=== PATIENT | male | born 1995 | race Hispanic/Latino ===

== ENCOUNTER 2016-10-23 10:26 | Emergency (ER) | payer MEDICAID ==
[2016-10-23 11:21] VITALS: BP 136/83; PULSE 96; RESP 16; TEMP 97.4; O2SAT 98
[2016-10-23] MEDS ORDERED: Naproxen 500 MG TAB PO STA (11:21)
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
--- NOTE | 2016-10-23 12:55 | RAD ---
PROCEDURE: Right Ankle Radiographs. HISTORY: r/o fx COMPARISON: None FINDINGS: BONES: There is an acute nondisplaced fracture in the distal fibula. JOINTS: Normal. No osteoarthritis. Ankle mortise maintained. Talar dome intact SOFT TISSUES: There is moderate lateral soft tissue swelling. OTHER FINDINGS: None. IMPRESSION: Acute nondisplaced fracture in the distal fibula and moderate lateral soft tissue swelling.
--- NOTE | 2016-10-23 12:55 | RAD ---
PROCEDURE: Radiographs of the right tibia and fibula. HISTORY: r/o fx COMPARISON: None available. TECHNIQUE: Frontal and lateral views obtained. FINDINGS: BONES: There is an acute nondisplaced fracture in the distal fibula. Bone alignment and mineralization are normal. JOINT SPACES: Unremarkable. OTHER FINDINGS: There is mild lateral soft tissue swelling. IMPRESSION: Acute nondisplaced fracture in the distal fibula and mild lateral soft tissue swelling.
--- NOTE | 2016-10-23 12:56 | RAD ---
PROCEDURE: Right Foot Radiographs. HISTORY: Ankle pain COMPARISON: None. FINDINGS: BONES: Treatment mineralization are normal. There is no acute displaced fracture or bone destruction. JOINTS: Normal. SOFT TISSUES: Normal. OTHER FINDINGS: None. IMPRESSION: No acute fracture or dislocation.
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
== END 2016-10-23 14:45 | disposition home or self-care (01) ==
LOC: H.ER 10:26
DX: S82.891A Other fracture of right lower leg, initial encounter for closed fracture (principal); X50.1XXA Overexertion from prolonged static or awkward postures, initial encounter; Y93.02 Activity, running; Y92.9 Unspecified place or not applicable

== ENCOUNTER 2016-11-13 18:08 | Emergency (ER) | payer MEDICAID ==
[2016-11-13 18:25] VITALS: BP 133/88; PULSE 81; RESP 18; TEMP 99; O2SAT 99
--- NOTE | 2016-11-13 20:11 | ED PDOC ---
Lower Extremity Pain/Injury Time Seen by Provider: 11/13/16 18:25 Chief Complaint (Nursing): Lower Extremity Problem/Injury Chief Complaint (Provider): Right ankle injury History Per: Patient History/Exam Limitations: no limitations Onset/Duration Of Symptoms: Days (x 2) Current Symptoms Are (Timing): Still Present Additional Complaint(s): Adonis is a 20 y/o male who presents to the ED complaining of right foot pain. Was seen here on 10/23/16, and diagnosed with fracture of right ankle. Patient evaluated by Podiatry, and was to follow up the next day for surgery consideration, but states he had insurance issues and did not. Also, he was scared about the thought of surgery. Patient ended up removing splint and has been walking around. States he has not attempted to look for a new Orthopedist or Automatic Oven Operator to heal the fracture. Also reports 2 days ago he fell down and re- injured the right leg, having increased pain ever since. PMD: Non H Provider Past Medical History Reviewed: Historical Data, Nursing Documentation, Vital Signs Vital Signs: Last Vital Signs Temp 99 F 11/13/16 18:19 Pulse 81 11/13/16 18:19 Resp 18 11/13/16 18:19 BP 133/88 11/13/16 18:19 Pulse Ox 99 11/13/16 18:19 - Family History Family History: States: Unknown Family Hx - Home Medications Home Medications: Ambulatory Orders Medication Instructions Recorded oxyCODONE/Acetaminophen [Percocet 1 ea PO Q6 PRN #20 tab 10/23/16 5/325 mg Tab] - Allergies Allergies/Adverse Reactions: Allergies Allergy/AdvReac Type Severity Reaction Status Date / Time No Known Allergies Allergy Verified 10/23/16 11:21 Review of Systems ROS Statement: Except As Marked, All Systems Reviewed And Found Negative Musculoskeletal: Positive for: Foot Pain (right ankle) Neurological: Negative for: Weakness, Numbness Physical Exam - Reviewed Nursing Documentation Reviewed: Yes Vital Signs Reviewed: Yes - Physical Exam Appears: Positive for: Well, Non-toxic, No Acute Distress Head Exam: Positive for: ATRAUMATIC, NORMAL INSPECTION, NORMOCEPHALIC Skin: Positive for: Normal Color, Warm, Dry Eye Exam: Positive for: EOMI, Normal appearance, PERRL Neck: Positive for: Normal, Painless ROM Respiratory: Negative for: Respiratory Distress Pulses-Dorsalis Pedis (L): 2+ Pulses-Dorsalis Pedis (R): 2+ Extremity: Positive for: Tenderness (Moderate tenderness to the lateral malleolus), Capillary Refill (< 2 sec). Negative for: Deformity, Swelling Neurologic/Psych: Positive for: Alert, Oriented - ECG O2 Sat by Pulse Oximetry: 99 (RA) Pulse Ox Interpretation: Normal - Radiology X-Ray: Interpreted by Me, Viewed By Me X-Ray Interpretation: Fracture (nondisplaced oblique fracture of the distal fibula) Medical Decision Making Medical Decision Making: Time: 18:49 Initial Plan: --Repeat X-Rays Right Ankle and Tibia Fibula --Podiatry paged for consult Time: 19:30 --Podiatry resident at bedside --Case was discussed with Dr. Holbrook and pt. is to f/u with podiatry clinic tomorrow to determine if he needs surgery -- pt. verbalized understanding of necessary f/u with podiatry clinic tomorrow to [place] Time: 20:00 Clinical Impression: Ankle fracture Follow up arranged for tomorrow with Dr. Holbrook to determine whether patient will require surgery or not Ankle is immobilized in posterior short leg splint. Patient is medically stable for discharge. There is agreement to discharge plan. Return if symptoms persist or worsen. Scribe Attestation: Documented by Cata Vegas, acting as a scribe for Kenn Naqvi PA-C Provider Scribe Attestation: All medical record entries made by the Scribe were at my direction and personally dictated by me. I have reviewed the chart and agree that the record accurately reflects my personal performance of the history, physical exam, medical decision making, and the department course for this patient. I have also personally directed, reviewed, and agree with the discharge instructions and disposition. Disposition - Clinical Impression Clinical Impression: Ankle fracture - Patient ED Disposition Is Patient to be Admitted: No Counseled Patient/Family Regarding: Diagnosis, Need For Followup - Disposition Referrals: Podiatry Clinic [Outside] Disposition: Routine/Home Disposition Time: 20:00 Condition: STABLE Additional Instructions: GO TO PODIATRY CLINIC TOMORROW WITHOUT FAIL PREVIOUSLY SCHEDULED Instructions: Ankle Fracture (ED), Crutch Instructions (ED), Splint Care (ED) Forms: [employer] (Mongolian) Print Language: ROMANIAN
--- NOTE | 2016-11-13 21:12 | CP.PCM.CON ---
History of Present Illness - History of Present Illness History of Present Illness: 20 y/o male with no significant PMH seen in ED by podiatry for right fibula fracture. Pt was seen in ED 3 weeks ago at which time he was informed he had a spiral fibular fracture and to follow up with attending in office to schedule surgery. Pt says due to insurance issues he could not see the doctor and instead continued with conservative treatment, keeping the posterior splint on since his ED visit 10/23. Pt states he fell today and landed on his side with splint still intact. Pt removed splint approx 2 hours ago prior to ED arrival to make sure his leg was ok. Pt states the pain is approx 8/10, compared to a 10 /10 on his last visit. Pt has kept splint clean, dry and intact up until 2 hours prior to arrival and has remained NWB using crutches. Pt is agreeable to surgery if this is the best way to treat his injury. Pt denies F/C/N/V/SOB. Review of Systems - Review of Systems All systems: reviewed and no additional remarkable complaints except (per HPI) Past Patient History - Infectious Disease Hx of Infectious Diseases: None - Past Social History Smoking Status: Unknown If Ever Smoked - PSYCHIATRIC Hx Substance Use: No - SURGICAL HISTORY Hx Surgeries: No - ANESTHESIA Hx Anesthesia: No Meds Allergies/Adverse Reactions: Allergies Allergy/AdvReac Type Severity Reaction Status Date / Time No Known Allergies Allergy Verified 10/23/16 11:21 Physical Exam - Constitutional Appears: Well, Non-toxic, No Acute Distress - Extremities Exam Additional comments: Right lower extremity focused examination: Vasc: DP/PT pulses are palpable 2/4, CFT < 3 sec to all digits, TG warm to cool from proximal to distal, minimal pedal edema noted proximal to lateral malleolus Derm: no erythema, no interdigital maceration, no open lesions, no clinical suspicion of infection Neuro: protective sensation grossly intact Ortho: mildly diminished active DF, PF, inversion and eversion due to guarding. MMT: unable to asses due to patient guarding the foot and ankle. Tenderness on palpation of fibula proximal to lateral malleolus. No tenderness elicited upon squeezing of calf - Neurological Exam Neurological exam: Alert, Oriented x3 - Psychiatric Exam Psychiatric exam: Normal Affect, Normal Mood Results - Vital Signs Recent Vital Signs: Last Vital Signs Temp 99 F 11/13/16 18:19 Pulse 81 11/13/16 18:19 Resp 18 11/13/16 18:19 BP 133/88 11/13/16 18:19 Pulse Ox 99 11/13/16 20:17 Assessment & Plan - Assessment and Plan (Free Text) Assessment: 20 y/o male with non-displaced right spiral fibula fracture Plan: Pt seen and evaluated in ED Discussed plan in detail with attending Dr. Holbrook X-rays reveal spiral fracture of R fibula, nondisplaced, no significant changes in comparison to 10/23, possible signs of bony consolidation forming at fracture site Posterior splint applied to RLE Pt instructed to follow up tomorrow AM in [facility] podiatry clinic to discuss conservative vs surgical treatment due to the fact that injury occurred 3+ weeks ago Pt to get outpatient CT scan tomorrow following clinic visit Pt to remain NWB with crutches and keep posterior splint clean, dry and intact until follow up appt Thank you for this consult
--- NOTE | 2016-11-14 10:11 | RAD ---
PROCEDURE: Right ankle dated 11/13/2016 Three standard views the right ankle performed HISTORY: Trauma. COMPARISON: Correlation made with concurrent radiographs of the right foot. FINDINGS: BONES: No evidence of acute displaced fracture nor dislocation. JOINTS: Normal. No osteoarthritis. Ankle mortise maintained. Talar dome intact SOFT TISSUES: Suspect mild bilateral soft tissue swelling OTHER FINDINGS: None. IMPRESSION: No evidence of acute displaced fracture nor dislocation. There may be some mild bilateral soft tissue swelling.
--- NOTE | 2016-11-14 14:12 | RAD ---
PROCEDURE: Right tibia and fibula HISTORY: trauma COMPARISON: Correlation made with concurrent radiographs of the right ankle TECHNIQUE: Frontal and lateral views obtained. FINDINGS: BONES: Comminuted oblique fractures traversing the the distal fibula JOINT SPACES: Unremarkable. OTHER FINDINGS: None. IMPRESSION: Comminuted oblique fractures traversing the distal fibula. . Note this report was placed in PA review folder for followup.
== END 2016-11-13 20:49 | disposition home or self-care (01) ==
LOC: H.ER 18:08
DX: S82.831D Other fracture of upper and lower end of right fibula, subsequent encounter for closed fracture with routine healing (principal); W19.XXXD Unspecified fall, subsequent encounter

== ENCOUNTER 2016-11-18 11:14 | Day surgery (SDC) | payer MEDICAID ==
[2016-11-17 11:53] VITALS: BMI 27.2
--- NOTE | 2016-11-18 11:51 | CP.SDSHP ---
Same Day Surgery H & P - History Proposed Procedure: ORIF of right ankle Pre-Op Diagnosis: Right fibular fracture - Allergies Allergies: Allergies No Known Allergies Allergy (Verified 10/23/16 11:21) - Physical Exam Mental Status: Alert & Oriented x3 Neuro: WNL Heart: WNL Lungs: WNL - {Optional Preform as Required} Ortho: Other - Impression Impression: Pt was seen and examined in SDS. Pt NPO status was confirmed. All Pre-op testing and clearance was in the chart. Pt has exhausted all conservative treatment at this time and is opting for surgical intervention. Pt was explained procedure and post-operative course. All pt's questions were answered to satisfaction. No guarantees were made. Pt understands all risks, benefits and complications of procedure. Pt will follow-up with Dr. Holbrook Short Stay Discharge - Short Stay Discharge Admitting Diagnosis/Reason for Visit: S82.61XD Disposition: HOME/ ROUTINE Referrals: Clive Huynh MD [Primary Care Provider] - Additional Instructions (Diet, Activity): Patient in good/stable condition for discharge home. Pt to resume medications per medical reconciliation. Resume regular diet. Please keep dressing clean, dry, & intact to surgical site, use plastic bag over bandage for showering, wear post op shoe at all times when ambulating, call clinic if you see signs of infection (redness, swelling, malodor), please make an appointment to see Dr. Holbrook in office/clinic within 1 week for post-op check. Progress Note/Discharge Note with Instructions: - Patient evaluated bedside in recovery s/p surgical procedure. - After surgical procedure patient in NAD - (+) Void, (+) Appetite - Capillary refill time <3s and NVSI intact. - Patient denies complaints at this time - Post operative instructions and plan of care explained to patient at length. - Pt. acknowledges understanding. - Patient stable for DC per podiatric surgery
--- NOTE | 2016-11-18 11:55 | CP.PCM.PN ---
Subjective - Date & Time of Evaluation Date of Evaluation: 11/18/16 Time of Evaluation: 11:51 - Subjective Subjective: 20 y/o male with no significant PMH seen at bedside in [facility] for right fibula fracture. Patient was seen in ED 4 weeks ago at which time he was informed he had a spiral fibular fracture. Patient states that he is here for the ankle surgery. Patient states that he has been staying in the posterior splint and has been using the crutches. Patient states that he has been NPO since midnight. Patient denies of any recent F/C/SOB/CP today. PMHx: denies PSHx: denies Allergies: denies SHx: Agrees to smoking marijuana and cigarets, social drinking, denies of any other illicit drug usage Objective - Constitutional Appears: Well, Non-toxic, No Acute Distress - Extremities Exam Additional comments: Posterior splint is clean, dry and intact ANIMAL ASSISTANT: < 3 sec to all digits, Active ROM at MTPJ intact - Neurological Exam Neurological Exam: Alert, Awake, Oriented x3 - Psychiatric Exam Psychiatric exam: Normal Affect, Normal Mood Assessment and Plan - Assessment and Plan (Free Text) Assessment: 20 y/o male seen at bedside in [facility] for right fibular spiral fracture Plan: Pt was seen and examined in [facility] Pt NPO status was confirmed All Pre-op testing and clearance was in the chart Pt has exhausted all conservative treatment at this time and is opting for surgical intervention Pt was explained procedure and post-operative course All pt's questions were answered to satisfaction No guarantees were made Pt understands all risks, benefits and complications of procedure Pt will follow-up with Dr. Holbrook
[2016-11-18 11:59] VITALS: RESP 18
[2016-11-18] MEDS ORDERED: ceFAZolin 2 GM in Sodium Chloride 0.9% 100 ML IVPB ONE (13:09)
[2016-11-18] MEDS ORDERED: Bupivacaine 0.5% Inj(30mL) IJ ONE (13:09)
[2016-11-18] MEDS ORDERED: Lidocaine 1% Inj (20ml) IJ ONE (13:09)
[2016-11-18] MEDS ORDERED: MethylPREDNISolone Depo 40 mg/ml Inj ONE (13:12)
[2016-11-18] MEDS ORDERED: Dexamethasone 4 mg/1 ml ONE ×2 (13:12→14:43)
[2016-11-18] MEDS ORDERED: Bupivacaine HCl 0.25% PF (30 ml) Inj ONE (13:12)
[2016-11-18] MEDS ORDERED: Bupivacaine 0.5% Inj(30mL) ONE (13:13)
[2016-11-18] MEDS ORDERED: Lidocaine 1% Inj (20ml) ONE ×2 (13:13→14:00)
[2016-11-18] MEDS ORDERED: Sodium Chloride 0.9% 1,000 ML IV SCH (13:15)
[2016-11-18] MEDS ORDERED: ePHEDrine 50 mg/ml Inj ONE (13:54)
[2016-11-18] MEDS ORDERED: Propofol 10 mg/ml Inj (20 ML) ONE ×2 (13:54→14:25)
[2016-11-18] MEDS ORDERED: Midazolam 2 MG/2 ML VIAL ONE (13:54)
[2016-11-18] MEDS ORDERED: Succinylcholine 200 mg/10 ml Inj IV ONE (13:55)
[2016-11-18] MEDS ORDERED: Lidocaine 4% (Laryng-O-Jet) Kit MM ONE (13:55)
[2016-11-18] MEDS ORDERED: Rocuronium 10 mg/ml (5 ml) ONE (13:55)
[2016-11-18] MEDS ORDERED: Lidocaine 2% MPF (5 ml) Inj ONE ×2 (13:55)
[2016-11-18] MEDS ORDERED: Ropivacaine 0.5% 30ML IV ONE (14:00)
[2016-11-18] MEDS ORDERED: Lactated Ringer's 1,000 ML IV ONE ×2 (14:02→16:00)
[2016-11-18] MEDS ORDERED: Sevoflurane - Inhalation Anesthetic Liq (250 ml) ONE (14:40)
[2016-11-18] MEDS ORDERED: Neostigmine Methylsulfate 2 MG/2 ML ML IV ONE (16:19)
--- NOTE | 2016-11-18 16:44 | RAD ---
PROCEDURE: Intraoperative Fluoroscopy. HISTORY: RIGHT ANKLE ORIF FINDINGS: Fluoroscopic assistance was provided. 8.4 seconds fluoroscopy time utilized during this procedure.
[2016-11-18] MEDS ORDERED: Oxycodone/Acetaminophen 5/325 mg Tab PO PRN ×2 (16:49)
--- NOTE | 2016-11-18 16:55 | PCM.SURG1 ---
Surgeon's Initial Post Op Note - Surgeon's Notes Surgeon: Dr. Holbrook DPM Social Service Liaison: Dr. Booen Aquino PGY-3, Dr. Lucia Snow PGY-1 Type of Anesthesia: General LMA Anesthesia Administered By: Dr. Ribera Pre-Operative Diagnosis: Right fibular fracture Operative Findings: See dictation. M: 3.5 cortical 12 mm x 2, 14 mm x 2, 16 mm 18mm, 10 hole 1/3 tublar plate, 3.5 locking 10 mm x 2, 2-0 vicryl x 3, 3-0 vicryl x 3, 4-0 nylone x 4. I: 10 cc of 0.5% marcain plain Post-Operative Diagnosis: same Operation Performed: ORIF of right ankle Specimen/Specimens Removed: None Estimated Blood Loss: EBL {In ML}: 15 Blood Products Given: N/A Drains Used: No Drains Post-Op Condition: Good Date of Surgery/Procedure: 11/18/16 Time of Surgery/Procedure: 16:55
[2016-11-18] MEDS ORDERED: HYDROmorphone 0.5 mg/0.5 ml ISec IVP PRN (17:18)
[2016-11-18 18:33] VITALS: O2SAT 100
[2016-11-18 19:30] VITALS: BP 142/87; PULSE 92; TEMP 98.2
--- NOTE | 2016-11-19 08:54 | RAD ---
PROCEDURE: Right Ankle Radiographs. HISTORY: s/p right ankle surgery COMPARISON: Comparison is made to previous study dated 11/13/2016 FINDINGS: BONES: Normal. No fractureStatus post internal fixation at the distal fibula by plate and multiple screws. The bone is seen at normal alignment. The right ankle is seen in cast. JOINTS: Normal. No osteoarthritis. Ankle mortise maintained. Talar dome intact SOFT TISSUES: Right ankle seen in cast which limits the evaluation for fine details OTHER FINDINGS: None. IMPRESSION: Status post internal fixation of the previously seen distal right fibula fracture.
--- NOTE | 2016-11-21 09:01 | OP ---
PROCEDURE DATE: 11/18/2016 DICTATING ON BEHALF OF: Dr. Jerome Holbrook. PREOPERATIVE DIAGNOSIS: Right ankle displaced fibular fracture. POSTOPERATIVE DIAGNOSIS: Right ankle displaced fibular fracture. NAME OF PROCEDURE: Right ankle open reduction and internal fixation of displaced fibular fracture with plate and screw fixation. SURGEON: Jerome Holbrook DPM ASSISTANTS: 1. Boone Aquino DPM, PGY3. 2. Lucia Snow DPM, PGY1. PRECIPITATOR OPERATOR: Dr. Villalba. TYPE OF ANESTHESIA: General with popliteal block. INDICATIONS: The patient is a 20-year-old male who sustained a right fibular fracture secondary to trauma approximately 4 weeks ago. He was seen in the [facility] ED on 10/23/2016 and was placed in a posterior splint. The patient was unable to follow up at photo specialist's private office and thus returned to the [facility] ED on 11/13/2016. At this time, the patient was instructed to follow up in the outpatient podiatry clinic the following day. During this visit, the decision for surgical intervention was made by Dr. Holbrook. The patient signed the consent after careful explanation of the risks, benefits, complications, and alternatives for surgical procedure, no guarantees were given nor implied. Ancef 2 g of IV was given to the patient prior to the procedure. The patient's n.p.o. status was confirmed prior to taking the patient to the OR. PREPARATION: The patient was brought to the operating room and placed on the operating room table in a supine position. Time-out was performed for identification of the correct patient and correct procedure. Upon induction of general anesthesia, a well-padded pneumatic thigh tourniquet was applied to the patient's right thigh. A hip bump was then placed under the ipsilateral hip to internally rotate the legs to allow for better visualization of the operative site. The right lower extremity was then prepped and draped in usual sterile manner. Esmarch was utilized to exsanguinate the patient's right lower extremity. Pneumatic thigh tourniquet was then inflated to 350 mmHg and the procedure began. PROCEDURE: Attention was then directed to the lateral aspect of the patient's right ankle. Using a #15 blade and approximately 12 cm linear longitudinal incision was created overlying the midline of the distal fibular shaft encompassing the lateral malleolus. The distal end of the incision was mildly curvilinear in nature to follow the contour of lateral malleolus. The incision was deepened through the subcutaneous tissues using sharp and blunt dissection. Care was taken to identify and retract all vital neurovascular structures. All bleeders were cauterized and ligated as necessary. At this time, blunt dissection was carried down to the level of periosteum. Next, a fresh #15 blade was used to make a linear periosteal incision. The periosteal tissues were then carefully dissected free of it osseous attachments both anteriorly and posteriorly to expose the oblique fracture into the operative field. At this time, the fracture site was gently distracted in order to evacuate the hematoma and any interposed fibrotic tissue from the fracture site. Next, with the use of a large bone clamp, the fracture site was manually reduced, brought into normal anatomic alignment. At this time, using standard AO principles and techniques, two Synthes 3.5 mm cortical screws were inserted across the fracture site with excellent compression noted. The interfragmentary compression was then assessed under live fluoroscopy and sikhism of a normal alignment of the fibula was appreciated. At this time, a Synthes 10-hole one-third fibular plate was now positioned on the lateral aspect of the fibula. The plate was then bent using plate benders in order to follow the contour of the bone. The holes of the distal fibular plate were then filled with multiple 3.5 mm locking and non-locking screws. Non-locking screws were inserted prior to locking screws to ensure adequate space for bone purchase. At this point, multiple intraoperative fluoroscopic images were taken to assess adequate positioning of the hardware and fracture reduction, both of which were noted to be excellent. Next, the surgical site was irrigated with copious amount of sterile normal saline. Deep tissue closure was now performed with a combination of 2-0 and 3-0 Vicryl. Subcutaneous tissues were then reapproximated and coapted using 4-0 Vicryl. The skin was then reapproximated and coapted using 4-0 nylon in an interrupted horizontal mattress suture technique. Next, approximately 10 mL of 0.5% Marcaine plain was used to block the saphenous nerve. The surgical site was then dressed with Xeroform, 4 x 4 gauze, Mark, and Kerlix. A well-padded below-knee fiberglass cast was then applied to the right lower extremity ensuring to maintain the ankle in 90 degrees of dorsiflexion. The cast was then bivalved for comfort and also to accommodate for any postoperative edema. The attending, Dr. Holbrook, was present throughout the entire case. POSTOPERATIVE CONDITION: The patient tolerated the procedure and anesthesia well with no complications. The patient was escorted to the recovery room with vital signs stable and neurovascular status intact to the right lower extremity. The patient was instructed to remain nonweightbearing to the right lower extremity with crutches. He is to follow up with Dr. Holbrook at his office on an outpatient basis. Boone Aquino DPM Jerome Holbrook DPM
== END 2016-11-18 19:48 | disposition home or self-care (01) ==
LOC: H.OPSURG 11:14
DX: S82.891A Other fracture of right lower leg, initial encounter for closed fracture (principal); X58.XXXA Exposure to other specified factors, initial encounter
CPT/HCPCS: 27792; 73600; 76001; J0330; J0690; J1100; J1885; J2175; J2250; J2405; J2704; J2710; J3010; J7040; J7120